=== PATIENT | female | born 1975 | race Caucasian/White ===

== ENCOUNTER 2017-08-05 08:23 | Day surgery (SDC) | payer OTHER ==
[2017-08-03 17:28] VITALS: BMI 31.9
[2017-08-05] MEDS ORDERED: PROPOFOL 20 ML ONE ×2 (10:46)
[2017-08-05] MEDS ORDERED: MIDAZOLAM HCL 2 MG/2 ML SINGLE DOSE VIAL ONE ×3 (10:46→11:28)
[2017-08-05] MEDS ORDERED: KETOROLAC TROMETHAMINE 30 MG/1 ML VIAL ONE (11:22)
[2017-08-05] MEDS ORDERED: ONDANSETRON 4 MG/2 ML VIAL ONE (11:22)
[2017-08-05] MEDS ORDERED: DEXAMETHASONE SOD PHOSPHATE 4 MG/1 ML VIAL ONE (11:29)
[2017-08-05] MEDS ORDERED: IBUPROFEN 400 MG TABLET (FP) PO PRN (11:55)
[2017-08-05] MEDS ORDERED: ACETAMINOPHEN 325 MG TABLET (FP) PO PRN (11:55)
--- NOTE | 2017-08-05 11:55 | HP ---
History & Physical Update - History History: No Change - Physical Physical: No Change - Assessment Assessment: No Change - Plan Plan: No Change
--- NOTE | 2017-08-05 11:57 | OP ---
Operative Note - Note: Operative Date: 08/05/17 Pre-Operative Diagnosis: Menorrhagia Operation: Hysteroscopy. DC Post-Operative Diagnosis: Same as Pre-op Surgeon: Sari Hanks Anesthesia: General Estimated Blood Loss (mls): 10 Operative Report Dictated: Yes
[2017-08-05] MEDS ORDERED: ONDANSETRON 4 MG/2 ML VIAL IVPUSH PRN (12:01)
[2017-08-05] MEDS ORDERED: LACTATED RINGERS SOLUTION 1,000 ML IV SCH (12:15)
[2017-08-05 14:31] VITALS: TEMP 98.2
[2017-08-05 15:02] VITALS: BP 110/62; PULSE 76
--- NOTE | 2017-08-06 12:08 | PATH ---
Surgical Pathology Report Patient Name: FLOWER REDMAN [facility]. Rec. #: [id number] /Age/Gender: 1975 (Age: 42) / F Account: [id number] Location: [facility] Taken: 08/05/2017 Received: 08/05/2017 Reported: 08/06/2017 Physicians: Sari Hanks M.D. Specimen(s) Received UTERINE CONTENTS Clinical History Menorrhagia Final Diagnosis UTERUS, HYSTEROSCOPIC MYOMECTOMY: FRAGMENT OF FIBROMUSCULAR TISSUE CONSISTENT WITH MYOMETRIAL TISSUE, ALONG WITH SCANT BENIGN ENDOMETRIAL TYPE EPITHELIUM AND STROMA. NO ENDOMETRIAL HYPERPLASIA OR CARCINOMA IDENTIFIED. Electronically Signed Jackson Melendez M.D. Gross Description Received in formalin labeled "contents of uterus," is a 1.8 x 1.2 x 0.2 cm aggregate of nolasco red soft tissue fragments. The formalin is filtered and the specimen is entirely submitted in one cassette. /08/05/2017 saudi08/05/2017
== END 2017-08-05 14:40 | disposition home or self-care (01) ==
LOC: JASU-SURG 08:23
PROVIDERS: ATTEND Obstetrics & Gynecology
PROC: 0UDB8ZX Extraction of Endometrium, Via Natural or Artificial Opening Endoscopic, Diagnostic (ICD-10-PCS; principal; 2017-08-05 10:00)
DX: N92.0 Excessive and frequent menstruation with regular cycle (principal)
CPT/HCPCS: 88305-TC; 94760